=== PATIENT | female | born 1960 | race African-American/Black ===

== ENCOUNTER 2017-02-18 09:20 | Emergency (ER) | payer SELFPAY ==
[~2017-02-18] VITALS: Ht 167.6 cm; Wt 89.4 kg
[~2017-02-18 09:20] MED LIST: FERROUS SULFAT325 MG ORAL; NKM
[2017-02-18] MEDS ORDERED: HYDROCHLOROTH12.5 M2 ORAL (09:37)
[2017-02-18] MEDS ORDERED: MULTIVITAMINS1 EAC2 ORAL (09:37)
--- NOTE | 2017-02-18 11:22 | Emergency Room Report ---
History of Present Illness General Chief Complaint: Multiple Trauma/Fall Source: Patient Present Illness HPI This patient states that about an hour prior to arrival, she was walking a [place] and the floor was wet and she slipped and fell forward and hit her right shoulder and chest. She has pain in her chest and right shoulder. It is worse with specific movements. She also has left hip pain. She is able to ambulate. She shortness of breath. She denies head injury or neck pain. She denies abdominal pain. She has no other complaints. Allergies: Coded Allergies: No Known Allergies (Unverified , 09/21/13) Patient History Past Medical History: see triage record, DM, HTN Social History: Denies: smoking, alcohol use, drug use Last Menstrual Period: menopause Reviewed Nursing Documentation: PMH: Agreed, PSxH: Agreed Nursing Documentation-PMH Past Medical History: No Stated History Hx Cardiac Problems: No Hx Hypertension: Yes Hx Pacemaker: No Hx Asthma: No Hx COPD: No Hx Diabetes: No Hx Cancer: No Hx Gastrointestinal Problems: No Hx Dialysis: No History Of Psychiatric Problem: No Hx Neurological Problems: No Hx Cerebrovascular Accident: No Hx Seizures: No Review of Systems All Other Systems: negative except mentioned in HPI Physical Exam Vital Signs Date Time Temp Pulse Resp B/P (MAP) Pulse Ox O2 Delivery O2 Flow Rate FiO2 02/18/17 09:30 98.1 93 16 134/94 96 Room Air Sp02 EP Interpretation: reviewed, normal General Appearance: no apparent distress, alert, GCS 15, non-toxic Head: normocephalic, atraumatic Eyes: bilateral eye normal inspection, bilateral eye PERRL ENT: hearing grossly normal, normal pharynx, no angioedema, normal voice Neck: full range of motion, supple/symm/no masses Respiratory: chest non-tender, lungs clear, normal breath sounds, speaking full sentences Cardiovascular #1: regular rate, rhythm, no edema Gastrointestinal: normal bowel sounds, non tender, soft, non-distended, no guarding, no rebound Rectal: deferred Musculoskeletal: back normal, gait/station normal, normal range of motion, other - Pain w/ palpation around the L. hip. R. chest wall tpp. R. shoulder ttp. No deformity, swelling, ecchymosis noted. Neurologic: alert, oriented x3, responsive, motor strength/tone normal, sensory intact, speech normal Psychiatric: judgement/insight normal, memory normal, mood/affect normal, no suicidal/homicidal ideation Skin: normal color, no rash, warm/dry, well hydrated Medical Decision Making Diagnostic Impression: Primary Impression: Multiple contusions Additional Impression: Right shoulder strain ER Course This patient has a clinical presentation consistent with contusions and right shoulder strain. The patient underwent right shoulder x-ray, chest x-ray and left hip x-ray. These are unremarkable. The patient has pain with range of motion and has tenderness to palpation in the soft tissue. There is no evidence of compartment syndrome. There is no neurologic deficit. The patient was instructed on supportive home measures. No emergency medical condition was identified. The patient was given return precautions and followup instructions. Chest X-Ray Diagnostic Results Chest X-Ray Diagnostic Results : Chest X-Ray Ordered: Yes # of Views/Limited/Complete: 2 View Indication: Chest Pain EP Interpretation: Yes Interpretation: no consolidation, no effusion, no pneumothorax, no acute cardiopulmonary disease Impression: No acute disease Electronically Signed by: Johnathon Other X-Ray Diagnostic Results Other X-Ray Diagnostic Results : X-Ray ordered: R. shoulder xray, L. hip xray # of Views/Limited Vs Complete: Complete Indication: Pain EP Interpretation: Yes Interpretation: no dislocation, no soft tissue swelling, no fractures, other - See official reports. Impression: No acute disease Electronically Signed by: Johnathon Last Vital Signs Date Time Temp Pulse Resp B/P (MAP) Pulse Ox O2 Delivery O2 Flow Rate FiO2 02/18/17 09:30 98.1 93 16 134/94 96 Room Air Status: improved Disposition: HOME, SELF-CARE Condition: Improved Referrals: NOT CHOSEN MING/,REFERRING (PCP) SAMANTA EVANGELISTA D.O. Feb 18, 2017 11:22
[2017-02-18] MEDS ORDERED: CYCLOBENZAPRINE10 MG ORAL (11:26)
[2017-02-18] MEDS ORDERED: IBUPROFEN600 MG ORAL (11:26)
[2017-02-18 12:05] VITALS: BP 128/70
--- NOTE | 2017-02-18 16:33 | Diagnostic Imaging Report ---
Indication: Reason For Exam: TRAUMA Technique: 2 views of the left hip Comparison: none Findings: No acute fractures. No dislocations. Joint spaces are preserved. Normal mineralization. Impression: No acute process
--- NOTE | 2017-02-18 16:36 | Diagnostic Imaging Report ---
Indication: Reason For Exam: TRAUMA Technique: 3 views of the right shoulder Comparison: None Findings: No acute fractures. No dislocations. The joint spaces are preserved Impression: Negative
--- NOTE | 2017-02-18 16:37 | Diagnostic Imaging Report ---
Indication: Pain, status post fall Technique: 2 views of the chest Comparison: 09/21/2013 Findings: The heart remains borderline enlarged. The lungs and pleural spaces are clear. The bones are unremarkable. Findings are unchanged Impression: Cardiomegaly. No acute process
== END 2017-02-18 12:05 | disposition home or self-care (01) ==
LOC: EMR 10:02
DX: S20.219A Contusion of unspecified front wall of thorax, initial encounter (principal); S40.011A Contusion of right shoulder, initial encounter; S70.02XA Contusion of left hip, initial encounter; S46.911A Strain of unspecified muscle, fascia and tendon at shoulder and upper arm level, right arm, initial encounter; W01.0XXA Fall on same level from slipping, tripping and stumbling without subsequent striking against object, initial encounter; Y92.512 Supermarket, store or market as the place of occurrence of the external cause; I10 Essential (primary) hypertension; E11.9 Type 2 diabetes mellitus without complications
CPT/HCPCS: 71020; 73502; 99284

== ENCOUNTER 2017-02-27 14:07 | Emergency (ER) | payer SELFPAY ==
[~2017-02-27] VITALS: Ht 167.6 cm; Wt 99.8 kg
[~2017-02-27 14:07] MED LIST changes: +CYCLOBENZAPRINE10 MG ORAL; +HYDROCHLOROTH12.5 M2 ORAL; +IBUPROFEN600 MG ORAL; +MULTIVITAMINS1 EAC2 ORAL
[2017-02-27 14:41] VITALS: BP 166/97
--- NOTE | 2017-02-27 14:50 | Emergency Room Report ---
History of Present Illness General Chief Complaint: Pain Present Illness HPI 56 YO Female presents to the ED c/o 10/09 in severity right shoulder pain x 1 week, s/p fall. was previously evaluated and discharged. pt. reports continued pain. Has not followed up with PMD. denies new trauma or fall. denies erythema, increased temperature to palpation, fevers, chills, skin color changes, or sensation loss. reports pain is exacerbated with using her right arm especially raising her arm to do things such as brush her hair. denies clicking sensation in the shoulder or weakness. pt. describes fall and attempting to grab something to prevent her fall. Allergies: Coded Allergies: No Known Allergies (Unverified , 09/21/13) Patient History Past Medical History: see triage record Past Surgical History: none Pertinent Family History: none Immunizations: UTD Reviewed Nursing Documentation: PMH: Agreed, PSxH: Agreed Nursing Documentation-PMH Hx Cardiac Problems: No Hx Hypertension: Yes Hx Pacemaker: No Hx Asthma: No Hx COPD: No Hx Diabetes: No Hx Cancer: No Hx Gastrointestinal Problems: No Hx Dialysis: No Hx Neurological Problems: No Hx Cerebrovascular Accident: No Hx Seizures: No Review of Systems All Other Systems: negative except mentioned in HPI Physical Exam Vital Signs Date Time Temp Pulse Resp B/P (MAP) Pulse Ox O2 Delivery O2 Flow Rate FiO2 02/27/17 14:29 98.4 101 20 166/97 96 Room Air Sp02 EP Interpretation: reviewed, normal General Appearance: no apparent distress, alert, GCS 15, non-toxic Head: normocephalic, atraumatic ENT: hearing grossly normal, normal voice Neck: full range of motion Respiratory: lungs clear, normal breath sounds, speaking full sentences Cardiovascular #1: regular rate, rhythm Musculoskeletal: back normal, gait/station normal, normal range of motion, tender - TTP to lateral and anterior right shoulder, no bruises noted. pain with raising arm above 90*, no clicking and FROM with passive ranging. no obvious deformity, no erythema. Neurologic: alert, oriented x3, responsive, motor strength/tone normal, sensory intact, speech normal Skin: normal color, no rash, warm/dry, well hydrated Medical Decision Making PA Attestation Dr. Leach is my supervising physician whom pt. management has been discussed with. Diagnostic Impression: Primary Impression: Right shoulder injury Qualified Codes: S49.91XA - Unspecified injury of right shoulder and upper arm , initial encounter Additional Impression: Shoulder pain Qualified Codes: M25.511 - Pain in right shoulder ER Course 56 YO Female presents to the ED c/o 10/09 in severity right shoulder pain x 1 week, s/p fall. was previously evaluated and discharged. pt. reports continued pain. Has not followed up with PMD. denies new trauma or fall. denies erythema, increased temperature to palpation, fevers, chills, skin color changes, or sensation loss. reports pain is exacerbated with using her right arm especially raising her arm to do things such as brush her hair. denies clicking sensation in the shoulder or weakness. pt. describes fall and attempting to grab something to prevent her fall. DDx: fractures, dislocations, shoulder sprain, ligamental injury/ rotator cuff injury just to name a few. VS: WNL, stable HPI & PE most consistent with right shoulder soft tissue injury , possible rotator cuff injury or labrum tear. X-rays are not indicated at this time as they were performed last wee. I reviewed her previous imaging studies and official radiology report determines no Acute fractures or dislocation. Orders: none the diagnosis is clinical. Interventions: - Right shoulder sling applied by lcac operator, pt. remains NVI--- d/w pt. to use this sparingly and for no more than 5 hours at a time until evaluated by marine habitat resource specialist, d/w pt. that prolong shoulder immobilization/sling use can cause frozen shoulder. pt. verbalized understanding and agreement. - I discussed with this pt. that non-emergent MRI is warranted if her symptoms have not resolved. this is scheduled on an outpatient basis with referral from her PMD. d/w pt. that marine habitat resource specialist should evaluate and formulate specific treatment plan. In the mean time will continue conservative treatment, and rx some Lidoderm patches. Disposition: pt. is stable for D/C home. Last Vital Signs Date Time Temp Pulse Resp B/P (MAP) Pulse Ox O2 Delivery O2 Flow Rate FiO2 02/27/17 14:29 98.4 101 20 166/97 96 Room Air Disposition: HOME, SELF-CARE Condition: Stable Scripts Lidocaine (Lidoderm) 1 Each Adh..patch 1 PATCH TOPIC BID, #25 PATCH 0 Refills Patch(es) may remain in place for up to 12 hours in any 24-hour period. Prov: Sepideh Gilliland 02/27/17 Naproxen* (NAPROXEN*) 500 Mg Tablet 500 MG ORAL TWICE A WEEK, #20 TAB 0 Refills Prov: Sepideh Gilliland 02/27/17 Patient Instructions: Shoulder Pain Additional Instructions: Take medications as directed. Follow up with a Primary Care Provider in 3-5 days, for Time Cycle Operator and MRI referral --Please review list of primary care clinics, if you do not already have a primary care provider Do not. keep arm in sling for more than 5 hours of the day, need to gently stretch and use the arm to prevent frozen shoulder. Return sooner to ED if new symptoms occur, or current symptoms become worse. - Please note that this Emergency Department Report was dictated using [employer] wound technology software, occasionally this can lead to erroneous entry secondary to interpretation by the dictation equipment. Sepideh Gilliland Feb 27, 2017 14:50
[2017-02-27] MEDS ORDERED: NAPROXEN500 M2 ORAL (14:51)
[2017-02-27] MEDS ORDERED: LIDODERM700 M1 TOPIC (14:51)
[2017-02-27 15:05] VITALS: BP 166/97
== END 2017-02-27 15:08 | disposition home or self-care (01) ==
LOC: EMR 14:37
DX: S49.91XA Unspecified injury of right shoulder and upper arm, initial encounter (principal); X58.XXXA Exposure to other specified factors, initial encounter; Y93.9 Activity, unspecified; Y99.9 Unspecified external cause status; M25.511 Pain in right shoulder; I10 Essential (primary) hypertension
CPT/HCPCS: 99282